=== PATIENT | male | born 2000 | race Caucasian/White ===

== ENCOUNTER → 2020-04-22 | Outpatient (CLI) | payer BC | LOC: RAD 10:05 | DX: M25.511 Pain in right shoulder (principal); M25.512 Pain in left shoulder; M25.561 Pain in right knee; M25.562 Pain in left knee | CPT/HCPCS: 73030; 73560 ==

== ENCOUNTER → 2020-07-08 | Outpatient (CLI) | payer BC | LOC: MRI 08:11 | DX: G43.909 Migraine, unspecified, not intractable, without status migrainosus (principal) | CPT/HCPCS: 70553; A9577 ==